=== PATIENT | male | born 1950 | race Caucasian/White ===

== ENCOUNTER → 2018-04-21 | Outpatient (CLI) | payer MEDICARE, BC ==
[~2018-04-21] MED LIST: BP MED; CALCTAB19 PO; ENOX30P SQ; FAMO20TA2 PO; HYDR-3583 PO; LISI10TA3 PO; Lactulose Liq PO; SENN1TAB PO; VITA2000 PO; VITA500012 PO; WHEEMIS3; XARE10TA PO
[2018-04-21 12:25] LABS: AUTOMATED NEUTROPHIL # 3.1 TH/MM3 (1.8-7.7); BASOPHIL # 0.1 TH/MM3 (0-0.2); EOSINOPHIL # 0.1 TH/MM3 (0-0.4); EOSINOPHIL % 1.9 % (0.0-4.0); HEMATOCRIT 41.4 % (39.0-51.0); HEMOGLOBIN 13.9 GM/DL (13.0-17.0); LYMPH % 42.1 % (9.0-44.0); LYMPHOCYTE # 2.7 TH/MM3 (1.0-4.8); MEAN CELL VOLUME 92.7 FL (80.0-100.0); MEAN CORPUSCULAR HEMOGLOBIN 31.2 PG (27.0-34.0); MEAN CORPUSCULAR HGB CONC 33.6 % (32.0-36.0); MEAN PLATELET VOLUME 8.6 FL (7.0-11.0); MONO % 7.6 % (0.0-8.0); MONOCYTE # 0.5 TH/MM3 (0-0.9); NEUT % 47.4 % (16.0-70.0); PLATELET COUNT 224 TH/MM3 (150-450); RED BLOOD COUNT 4.47 MIL/MM3 (4.50-5.90); WHITE BLOOD COUNT 6.5 TH/MM3 (4.0-11.0)
[2018-04-21 12:33] LABS: PROTHROMBIN TIME - PATIENT 10.4 SEC (9.8-11.6)
--- NOTE | 2018-04-21 12:34 | RADRPT ---
EXAM DATE: 04/21/2018 12:30 PM EDT AGE/SEX: 67 years / Male INDICATIONS: Evaluate for pneumonia, pneumothorax, or any communicable disease. Pre op knee surgery. CLINICAL DATA: This is the patient's initial encounter. Patient reports that signs and symptoms have been present for 1 day and indicates a pain score of 0/10. MEDICAL/SURGICAL HISTORY: None. None. COMPARISON: No prior exams available for comparison. FINDINGS: PA and lateral views of the chest demonstrate the lungs to be symmetrically aerated without evidence of mass, infiltrate or effusion. The cardiomediastinal contours are unremarkable. Osseous structures are intact. CONCLUSION: No active disease. Tortuous aorta. Electronically signed by: Hilario Jones MD 04/21/2018 12:33 PM EDT
[2018-04-21 12:36] LABS: BILIRUBIN, URINE NEG (NEG); BLOOD, URINE MOD (NEG); GLUCOSE,URINE NEG (NEG); KETONE, URINE NEG (NEG); MUCUS URINE FEW /lpf (OCC); NITRITE,URINE NEG (NEG); URINE COLOR YELLOW (YELLW/STRAW); URINE LEUKOCYTE ESTERASE NEG (NEG)
[2018-04-21 12:51] LABS: WESTERGREN SEDIMENTATION RATE 9 mm/hr (0-20)
[2018-04-21 13:20] LABS: ALBUMIN 4.2 GM/DL (3.4-5.0); ALT (GPT) 13 U/L (12-78); AST (GOT) 14 U/L (15-37); BICARBONATE 27.5 MEQ/L (21.0-32.0); BLOOD UREA NITROGEN 10 MG/DL (7-18); CALCIUM 8.9 MG/DL (8.5-10.1); CHLORIDE 107 MEQ/L (98-107); CREATININE 0.78 MG/DL (0.60-1.30); GLOMERULAR FILTRATION RATE 99 ML/MIN (>89); GLUCOSE,FASTING 89 MG/DL (74-99); SODIUM (NA) 141 MEQ/L (136-145)
[2018-04-21 13:22] LABS: ALKALINE PHOSPHATASE 109 U/L (45-117); TOTAL BILIRUBIN ADULT 0.6 MG/DL (0.2-1.0); TOTAL PROTEIN 7.4 GM/DL (6.4-8.2)
--- NOTE | 2018-04-21 15:26 | EKG ---
Date Performed: 04/21/2018 Time Performed: 11:50:18 PTAGE: 67 years EKG: Sinus rhythm BORDERLINE LEFT AXIS DEVIATION BORDERLINE ECG No significant change from prior electrocardiogram. PREVIOUS TRACING : 08/09/2017 05.55 DOCTOR: Arvin Fregoso Interpretating Date/Time 04/21/2018 15:25:42
== END ==
LOC: CPRE 11:26
PROVIDERS: ATTEND Orthopaedic Surgery
DX: Z01.812 Encounter for preprocedural laboratory examination (principal); Z01.810 Encounter for preprocedural cardiovascular examination; Z01.811 Encounter for preprocedural respiratory examination; M17.12 Unilateral primary osteoarthritis, left knee; M79.609 Pain in unspecified limb; M25.50 Pain in unspecified joint; R94.31 Abnormal electrocardiogram [ECG] [EKG]; Z96.60 Presence of unspecified orthopedic joint implant
CPT/HCPCS: 36415; 71046; 80053; 81001; 85025; 85610; 85652; 85730; 93005

== ENCOUNTER 2018-05-07 06:10 | Inpatient (IN) ==
[2018-05-07] MEDS ORDERED: Ketamine Inj 50 MG/5 ML Syringe IV.PUSH ONE (06:30)
[2018-05-07] MEDS ORDERED: Metoprolol Tartrate 25 MG Tablet PO SCH (06:45)
[2018-05-07] MEDS ORDERED: Chlorhexidine Gluconate 2% 1 Pack (2 Cloths) TOPICAL SCH (06:45)
[2018-05-07] MEDS ORDERED: Sodium Chlor 0.9% Inj 73.07 ML, Ropivacaine 0.5% PF Inj 24.63 ML, Ketorolac Inj 30 MG, ... P-ARTICULR SCH ×5 (07:00)
[2018-05-07] MEDS ORDERED: Sodium Chlor 0.9% Inj 500 ML IV.SIG SCH (07:00)
[2018-05-07] MEDS ORDERED: TRANEXAMIC ACID IV.SIG SCH (07:00)
[2018-05-07] MEDS ORDERED: SODIUM CHLOR 0.9% IV.SIG SCH (07:00)
[2018-05-07] MEDS ORDERED: Chlorhexidine 4% Topical 120 APPLIC/120 ML Bottle TOPICAL SCH (07:00)
[2018-05-07] MEDS ORDERED: Vancomycin Inj 1 GM/200 ML PIGGYBACK IV.SIG SCH (07:00)
[2018-05-07] MEDS: Dexamethasone Inj 20 MG/5 ML Vial IV.PUSH ONE (07:44)
[2018-05-07] MEDS ORDERED: Bupivacaine Liposomal PF 1.3% Inj 20 ML Vial ONE (07:47)
[2018-05-07] MEDS: ceFAZolin 2 GM Premix Inj 2 GM/50 ML PIGGYBACK IV.SIG SCH ×2 (08:06→20:06)
[2018-05-07] MEDS ORDERED: Bisacodyl 10 MG Supp RECTAL PRN (10:45)
[2018-05-07] MEDS ORDERED: Zolpidem Tartrate 5 MG Tablet PO PRN (10:45)
[2018-05-07] MEDS ORDERED: Tranexamic Acid Inj 1,000 MG in Sodium Chlor 0.9% Inj 100 ML IV.SIG ONE (10:45)
[2018-05-07] MEDS ORDERED: Post-op Orders (for Pharmacy) OTHER STA (10:45)
--- NOTE | 2018-05-07 11:00 | P.OP ---
Date of procedure: 05/07/18 Procedure: Left total knee arthroplasty, staged and planned, unusual procedure service Anesthesia: [facility] Surgeon: Devyn Gonzalez MD Stock Broker Supervisor: ENID Chatterjee The surgical procedure was assisted by my Advanced Registered Nurse Practitioner. My FINISHER DENTURE presence was necessary throughout this case for the manipulation and positioning of the surgical extremity. My FINISHER DENTURE was assisting me throughout the duration of this procedure. The skill set of an Advance Registered Nurse Practitioner was medically necessary to complete this procedure. During the surgical case, the surgical services asst was working at the back table and the Advance Registered Nurse Practitioner was directly assisting me. Estimated blood loss (mL): 300 Operation and Findings: IMPLANTS: DePuy Sigma revision components: Patella: size 35. Femur, posterior stabilized size 5. Tibia, rotating platform, size 5, metaphyseal sleeve 37 MBT revision, universal stem fluted, 75 x 18 Tibial insert, rotating platform, posterior stabilized size 10 mm thickness. ESTIMATED BLOOD LOSS: 300 cc TOURNIQUET TIME: 57 minutes at 250 mmHg pressure. JUSTIFICATION FOR PROCEDURE: The patient has end-stage osteoarthritis to the knee, due to posttraumatic deformity from a failed ORIF of a complex tibial plateau fracture. The patient had recently undergone removal of the hardware in preparation for moving forward with the complex knee reconstruction. The patient had significant deficiency of the lateral tibial plateau along with some nonunion laterally. This required revision components on the tibia. There is an attached conservative measures pathway form in the chart that describes the nonoperative measures that were undertaken prior to consideration of surgical management. The patient understood the risks and benefits of surgical management. See my office notes for further details. Note the extra time that was necessary to perform this surgery due to the complexity of the significant valgus deformity and the bone loss laterally. PROCEDURE: The patient was brought back to the operative theatre. Adequate anesthesia was obtained. The patient received intravenous vancomycin and Ancef. The lower extremity was prepped and draped in the usual sterile fashion.The leg was exsanguinated, the tourniquet was raised. A standard anterior incision was performed followed by medial parapatellar arthrotomy was performed. End-stage arthritis was identified. Significantly displaced depressed lateral tibial plateau fracture which was only partially healed was noted. There is still some evidence of nonunion of the very posterolateral aspect. Osteotomy of the patella was performed. We drilled holes for the patella. We trialed the patella component. We placed an intramedullary guide into the distal femur. We ultimately resected 13 mm off of the distal femur in 5 degrees of valgus. The remnants of the ACL and PCL were resected. Osteotomy of the proximal tibia was performed, resecting 10 mm off of the medial side. This was done with 3 degrees of posterior slope using an intramedullary guide. We did need to go back and perform further resection of the distal femur and some further resection of the proximal tibia in order to obtain good extension. At this time we took an extra 15 minutes working on ligament balance of the lateral aspect of the knee. The patient required recession of the iliotibial band and also of the popliteus tendon and also of the lateral collateral ligament. This was done in stages to make sure we did not over release the lateral side. We watch the foot and saw no contractures of the ankle or toes during the releases. The releases were performed with a Bovie. We went back to work on the tibia again. Initially we thought we were going to place a augment on the lateral side. We removed a lot of scar tissue laterally which gave us better visualization of the remaining portion of the bone. We used a assistant merchandiser followed by power reamers into the proximal tibia for the stem. We then proximally punched the tibia for the metaphyseal sleeve. We went up 2 sizes. We reassessed the lateral side. We found that we had adequate bone in the anterior and posterior aspect of the lateral plateau therefore we decided not to do the wedge but rather Obey the space with cement. We resected all remnants of the scar to get down to bone for the cementing. This entire process took an extra 25 minutes. Note that while we were doing this we did release the tourniquet and achieved hemostasis. The femur was sized, and four chamfer cuts were completed in 3 of external rotation. We then cut the central box in the distal femur to replace the PCL. We resected the remnants of the menisci and removed osteophytes off of the femur and tibia. We then trialed the knee. We spent an extra 7 minutes on the back table assembling the tibial components and making sure that they fit well into the appropriate region of the proximal tibia. We modified our standard cementing technique in order to fill the void laterally. We made sure not to get cement into the metaphyseal region where the sleeve was contacting an excellent base of bone. Excess cement was removed. We trialed the knee again and the final polyethylene thickness was chosen to provide extension to 0 degrees, and flexion of 140 degrees to gravity. The ligaments were appropriately balanced. Lateral release was necessary to obtain appropriate patellofemoral tracking. An intra-articular injection of a ropivacaine cocktail was injected. The posterior knee was inspected for excess cement, which was removed. The final polyethylene was put into position after thorough irrigation. We then closed deep fascia with a #2 Stratafix followed by skin with 2-0 Vicryl followed by Dermabond dressing. Postop plan is to weight-bear as tolerated. DVT prophylaxis will be performed with SCDs, SAPPHIRE diaz, early mobilization, and Lovenox followed by aspirin.
[2018-05-07] MEDS ORDERED: fentaNYL Citrate Inj 100 MCG/2 ML Ampul ONE (11:20)
[2018-05-07] MEDS: Sod Chloride 0.9% Inj 1,000 ML IV.CONT SCH (11:33)
[2018-05-07] MEDS ORDERED: *morphine SULFATE 4 MG/ML PERIprocedure ONLY ONE ×4 (11:34→12:15)
[2018-05-07] MEDS ORDERED: Glycopyrrolate Inj 1 MG/5 ML Syringe IV.PUSH ONE (11:46)
[2018-05-07] MEDS ORDERED: Lidocaine PF 1% Inj 5 ML Syringe INFILTRATN ONE (11:46)
[2018-05-07] MEDS ORDERED: Labetalol HCl Inj 100 MG/20 ML Vial IV.CONT ONE (11:46)
[2018-05-07] MEDS ORDERED: Neostigmine Inj 5 MG/5 ML Syringe IV.PUSH ONE (11:46)
[2018-05-07] MEDS ORDERED: Esmolol Bolus Inj 100 MG/10 ML Vial IV.PUSH ONE (11:46)
[2018-05-07] MEDS ORDERED: Morphine Inj 4 MG/ML Vial IV.PUSH PRN (12:00)
[2018-05-07] MEDS ORDERED: oxyCODONE/Acetaminophen 10/325 Tablet PO PRN (12:00)
--- NOTE | 2018-05-07 12:10 | XR ---
EXAM DATE: 05/07/2018 11:45 AM EDT AGE/SEX: 67 years / Male INDICATIONS: Post-op left knee. CLINICAL DATA: This is the patient's initial encounter. Patient reports that signs and symptoms have been present for 1 day and indicates a pain score of 8/10. MEDICAL/SURGICAL HISTORY: None. None. COMPARISON: No prior exams available for comparison. FINDINGS: Postoperative left total knee replacement. Normal alignment. Subacute fracture proximal fibula. Air p resent in the soft tissues. CONCLUSION: Postoperative left total knee replacement. No acute findings. Electronically signed by: Hilario Jones MD 05/07/2018 12:09 PM EDT
[2018-05-07] MEDS: Senna/Docusate Sodium 8.6/50 MG Tablet PO SCH (22:20)
[2018-05-07] MEDS: Multivitamin/Minerals Therapeutic Tablet PO SCH (22:20)
[2018-05-08] MEDS: oxyCODONE/Acetaminophen 10/325 Tablet PO PRN ×5 (02:33→20:50)
[2018-05-08 05:12] LABS: Hematocrit 29.8 % (39.0-51.0); Hemoglobin 10.1 gm/dL (13.0-17.0)
[2018-05-08] MEDS: Sod Chloride 0.9% Inj 1,000 ML IV.CONT SCH (07:47)
[2018-05-08] MEDS: Senna/Docusate Sodium 8.6/50 MG Tablet PO SCH ×3 (07:54→20:50)
[2018-05-08] MEDS: Multivitamin/Minerals Therapeutic Tablet PO SCH ×3 (07:54→20:50)
[2018-05-08] MEDS: Lisinopril 10 MG Tablet PO SCH ×2 (07:54→08:00)
[2018-05-08] MEDS ORDERED: Dexamethasone Inj 20 MG/5 ML Vial IV.PUSH ONE (08:00)
[2018-05-08] MEDS: Enoxaparin Inj 40 MG/0.4 ML Syringe SQ SCH (11:00)
[2018-05-08] MEDS: Dexamethasone Inj 20 MG/5 ML Vial IV.PUSH ONE (19:11)
--- NOTE | 2018-05-08 19:30 | P.DCO ---
- Physical Therapy Physical Therapy: Gait training, Transfer training, bed to chair Knee: Total knee Left Lower Extremity Weight Bearing: Weight bearing as tolerated Left Lower Extremity Range of Motion: Active ROM - Nursing RN: 3 days/week x 2 weeks Nursing: Randy mejia Dressing changes: Do not change dressing Additional instructions: First dressing change in office - Certification Need for Home Health services: I have seen patient Mando Crain on 05/08/18. My clinical findings support the need for the requested home health care services because: Need for Home Health Services: Deconditioned with increased weakness, High risk of falls Homebound Certification: I certify that my clinical findings support that this patient is homebound because: Homebound Certification: Post-op weakness, Unsteady gait/balance
--- NOTE | 2018-05-08 19:37 | P.PNOP ---
Subjective Interval history: The patient is resting comfortably in bed with mild to moderate pain to the left knee. Patient not sure whether he wants to go home with home health or to rehab. Patient states he lives alone. Physical Exam Vital signs: Vital Signs 05/07/18 20:00 05/08/18 00:00 05/08/18 04:00 Temperature 98.0 F 97.8 F 99.6 F Pulse Rate 66 75 82 Respiratory Rate 17 18 18 Blood Pressure 110/65 102/62 108/55 L Pulse Oximetry 98 97 96 05/08/18 08:00 05/08/18 12:37 05/08/18 15:25 Temperature 97.7 F 97.7 F 97.6 F Pulse Rate 81 85 80 Respiratory Rate 18 18 Blood Pressure 113/56 L 112/64 111/63 Pulse Oximetry 97 97 97 Intake & Output 05/08/18 05/08/18 05/09/18 06:59 18:59 06:59 Intake Total 560 / 560 215.2 / 215.2 Output Total 725 / 725 545 / 545 Balance -165 / -165 -545 / -545 215.2 / 215.2 Intake: IV 200 / 200 215.2 / 215.2 Ancef Inj 1,000 MG In NS Inj 200 / 200 100 ML @ 200 mls/hr IV.SIG Q6H DIGNA Rx#:[id number] Oral 360 / 360 Output: Urine 250 / 250 545 / 545 Stool 0 / 0 Urine Amount (Catheter) 475 / 475 Straight 475 / 475 Other: # Voids 2 Date of Last Bowel Movement 05/06/18 05/06/18 Narrative: Dressing is C/D/I. EHL/TA/G intact. 2+ pedal pulse. Calf is soft and nontender. Moderate swelling and ecchymosis. Compartments are soft. + SILT distally. - Constitutional no acute distress - Routine HEENT Exam Head: Present: normocephalic, atraumatic Eye: Present: PERRL ENT: Present: mucous membranes moist - Routine Neck Exam Present: supple - Routine Abdominal Exam Present: soft - Routine Skin Exam Present: dry, warm - Routine Neurological Exam Present: alert, oriented X3, CN II-XII intact - Detailed Neurological Exam: Coma Scale Eye Opening: Spontaneous Verbal Response: Oriented Motor Response: Obey commands [place] Coma Scale Total: 15 - Routine Psychiatric Exam Present: normal affect - Urinary Catheter Management Straight Cath placed during this visit: yes, but has since been removed by the nurse Reason for continuing: Not indwelling catheter Insertion date: 05/07/18 Insertion time: 23:30 Removal date: 05/08/18 Removal time: 00:15 Results - Labs CBC & Chem 7: 05/08/18 04:53 Laboratory Results - last 24 hr 05/08/18 04:53 Hgb 10.1 L Hct 29.8 L - Procedures Left TKA Assessment and Plan - Ortho Post Op Day # 1 (Left TKA) - Problem List (1) Primary localized osteoarthritis of left knee Code(s): M17.12 - Unilateral primary osteoarthritis, left knee Status: Acute (2) Status post total knee replacement, left Code(s): Z96.652 - Presence of left artificial knee joint Status: Acute - Assessment and Plan 1. WBAT LLE 2. Lovenox followed by ASA for DVT prophylaxis 3. Ice to the LLE PRN 4. No dressing changes. First dressing change in the office. 5. Anticipatory discharge to SNF vs. home with home health on Saturday or Saturday. 6. F/U in the office with Dr. Gonzalez or ENID Burrell as previously scheduled.
[2018-05-09] MEDS: oxyCODONE/Acetaminophen 10/325 Tablet PO PRN ×5 (03:04→20:50)
[2018-05-09] MEDS: Sod Chloride 0.9% Inj 1,000 ML IV.CONT SCH (06:27)
[2018-05-09 07:12] LABS: Hematocrit 25.9 % (39.0-51.0); Hemoglobin 8.8 gm/dL (13.0-17.0)
[2018-05-09] MEDS: Enoxaparin Inj 40 MG/0.4 ML Syringe SQ SCH ×2 (07:50→09:20)
[2018-05-09] MEDS: Lisinopril 5 MG Tablet PO SCH ×2 (07:58→08:02)
[2018-05-09] MEDS: Multivitamin/Minerals Therapeutic Tablet PO SCH ×2 (08:02→20:51)
[2018-05-09] MEDS: Senna/Docusate Sodium 8.6/50 MG Tablet PO SCH ×2 (08:02→20:50)
--- NOTE | 2018-05-09 14:10 | P.PNOP ---
Subjective Interval history: Patient's knee is comfortable. He just finished the joint class. Physical Exam Vital signs: Vital Signs 05/08/18 15:25 05/08/18 20:00 05/09/18 00:00 Temperature 97.6 F 97.2 F L 97.9 F Pulse Rate 80 77 89 Respiratory Rate 18 20 20 Blood Pressure 111/63 113/58 L 107/60 Pulse Oximetry 97 97 97 05/09/18 08:00 05/09/18 11:18 Temperature 99.0 F 97.8 F Pulse Rate 77 78 Respiratory Rate 16 17 Blood Pressure 117/59 L 99/59 L Pulse Oximetry 97 98 Intake & Output 05/08/18 05/09/18 05/09/18 18:59 06:59 18:59 Intake Total 1415.2 / 1415.2 2109.4 / 2109.4 Output Total 545 / 545 950 / 950 Balance -545 / -545 465.2 / 465.2 2109.4 / 2109.4 Intake: IV 215.2 / 215.2 2109.4 / 2109.4 NS Inj 1,000 ML @ 50 mls/hr IV. 857 / 857 CONT .Q20H DIGNA Rx#:[id number] LR 1000 mL Inj 1,000 ML @ 30 1000 / 1000 mls/hr IV.SIG .Q24H DIGNA Rx#: [id number] Vancomycin Inj 1 gm In 200 ml @ 200 / 200 200 mls/hr IV.SIG MILL ORDER SCHEDULER DIGNA Rx#:[id number] Ancef 2 GM Premix Inj 2 gm In 50 / 50 50 ml @ 100 mls/hr IV.SIG MILL ORDER SCHEDULER DIGNA Rx#:[id number] Oral 1200 / 1200 Output: Urine 545 / 545 950 / 950 Other: # Voids 2 Date of Last Bowel Movement 05/06/18 05/09/18 # Bowel Movements 1 Narrative: Dressing is C/D/I. There is moderate swelling of the knee. EHL/TA/G intact. Calf is soft and nontender - Urinary Catheter Management Straight Cath placed during this visit: yes, but has since been removed by the nurse Reason for continuing: Not indwelling catheter Insertion date: 05/07/18 Insertion time: 23:30 Removal date: 05/08/18 Removal time: 00:15 Results - Labs CBC & Chem 7: 05/09/18 06:30 Laboratory Results - last 24 hr 05/09/18 06:30 Hgb 8.8 L Hct 25.9 L - Procedures Left TKA Assessment and Plan - Problem List (1) Primary localized osteoarthritis of left knee Code(s): M17.12 - Unilateral primary osteoarthritis, left knee Status: Acute (2) Status post total knee replacement, left Code(s): Z96.652 - Presence of left artificial knee joint Status: Acute - Assessment and Plan POD #2 s/p L TKA, with revision components 1. WBAT LLE 2. Lovenox followed by ASA for DVT prophylaxis 3. Ice to the LLE PRN 4. No dressing changes. First dressing change in the office. 5. Anticipatory discharge to SNF on Saturday. Prescriptions on the chart. 6. F/U in the office with Dr. Gonzalez or ENID Burrell as previously scheduled.
[2018-05-10] MEDS: oxyCODONE/Acetaminophen 10/325 Tablet PO PRN ×3 (01:47→10:31)
[2018-05-10] MEDS: Sod Chloride 0.9% Inj 1,000 ML IV.CONT SCH (01:48)
[2018-05-10 05:34] VITALS: O2SAT 97
--- NOTE | 2018-05-10 08:04 | P.PNOP ---
Subjective Interval history: doing well. thigh sore. Physical Exam Vital signs: Vital Signs 05/09/18 11:18 05/09/18 16:00 05/09/18 20:00 Temperature 97.8 F 97.4 F L 97.8 F Pulse Rate 78 68 84 Respiratory Rate 17 16 18 Blood Pressure 99/59 L 123/71 106/55 L Pulse Oximetry 98 99 99 05/10/18 00:00 05/10/18 04:00 Temperature 97.8 F 98.6 F Pulse Rate 81 74 Respiratory Rate 18 18 Blood Pressure 126/68 98/57 L Pulse Oximetry 98 97 Intake & Output 05/09/18 05/10/18 05/10/18 18:59 06:59 18:59 Intake Total 2109.4 / 2109.4 600 / 600 Balance 2109.4 / 2109.4 600 / 600 Intake: IV 2109.4 / 2109.4 NS Inj 1,000 ML @ 50 mls/hr IV. 857 / 857 CONT .Q20H DIGNA Rx#:[id number] LR 1000 mL Inj 1,000 ML @ 30 1000 / 1000 mls/hr IV.SIG .Q24H DIGNA Rx#: [id number] Vancomycin Inj 1 gm In 200 ml @ 200 / 200 200 mls/hr IV.SIG BILL CUTTER DIGNA Rx#:[id number] Ancef 2 GM Premix Inj 2 gm In 50 / 50 50 ml @ 100 mls/hr IV.SIG BILL CUTTER DIGNA Rx#:[id number] Oral 600 / 600 Other: # Voids 4 Date of Last Bowel Movement 05/09/18 05/09/18 # Bowel Movements 1 Narrative: in bed, nad dressing c/d/i kendall hawkins nvi - Urinary Catheter Management Straight Cath placed during this visit: yes, but has since been removed by the nurse Reason for continuing: Not indwelling catheter Insertion date: 05/07/18 Insertion time: 23:30 Removal date: 05/08/18 Removal time: 00:15 Results - Labs CBC & Chem 7: 05/09/18 06:30 - Procedures Left TKA Assessment and Plan - Ortho Post Op Day # 3 - Problem List (1) Primary localized osteoarthritis of left knee Code(s): M17.12 - Unilateral primary osteoarthritis, left knee Status: Acute (2) Status post total knee replacement, left Code(s): Z96.652 - Presence of left artificial knee joint Status: Acute - Assessment and Plan POD #3 s/p L TKA, with revision components 1. WBAT LLE 2. Lovenox followed by ASA for DVT prophylaxis 3. Ice to the LLE PRN 4. No dressing changes. First dressing change in the office. 5. Anticipatory discharge to SNF on Saturday. Prescriptions on the chart.- cleared for d/c when arrangements in place 6. F/U in the office with Dr. Gonzalez or ENID Burrell as previously scheduled.
[2018-05-10 08:42] VITALS: BP 97/58; PULSE 75; RESP 17; TEMP 98.9
[2018-05-10] MEDS: Senna/Docusate Sodium 8.6/50 MG Tablet PO SCH (10:19)
[2018-05-10] MEDS: Lisinopril 5 MG Tablet PO SCH (10:20)
[2018-05-10] MEDS: Multivitamin/Minerals Therapeutic Tablet PO SCH (10:21)
[2018-05-10] MEDS: Enoxaparin Inj 40 MG/0.4 ML Syringe SQ SCH (10:31)
--- NOTE | 2018-05-12 17:12 | P.DS ---
Date of admission: 05/07/18 06:10 Primary care physician: Mirza Rodriguez DO Attending physician on discharge: Devyn Gonzalez Anticipated date of discharge: 05/10/18 Brief History from admission: The patient was admitted to the hospital with severe osteoarthritis of the LEFT knee and prior failure of a tibial plateau fracture with open reduction internal fixation. DS: Diagnosis - Discharge Diagnosis (1) Primary localized osteoarthritis of left knee Status: Acute (2) Status post total knee replacement, left Status: Acute DS: Medications - Discharge Medications Prescriptions: aspirin [Radha Aspirin] 325 mg PO DAILY 30 Days #30 tab enoxaparin [Lovenox] 40 mg SUB-Q DAILY 10 Days #10 ml oxycodone-acetaminophen [Percocet] 1 - 2 tab PO Q4-6H PRN #50 tab PRN Reason: Acute Pain DS: Summary Hospital Course: The patient was admitted to the hospital with severe osteoarthritis of the LEFT knee and prior failure of a tibial plateau fracture with open reduction internal fixation. The patient had a LEFT total knee arthroplasty. The patient 's surgery went well without complication. The patient is weightbearing as tolerated on the LEFT lower extremity. The patient was placed on Lovenox followed by aspirin for DVT prophylaxis. The patient was discharged to a [facility] facility for [facility]. The patient will follow-up in the office as previously scheduled with Dr. Gonzalez or ENID Burrell. - Time Spent with Patient Total time spent providing and/or coordinating discharge services: - Quality: VTE Deep Vein Thrombosis/Pulmonary Embolism Present on Admission: No Results Procedures completed during hospitalization: Left TKA - Impressions ITS Impressions Knee X-Ray 05/07/18 00:00 CONCLUSION: Postoperative left total knee replacement. No acute findings. Discharge Plan - Discharge Disposition Patient Disposition: /Home Health Service - Discharge Condition Condition: Stable - Discharge Order Discharge Orders: Discharge Order (Routine); Ordered 05/07/18 Ordered By: Jean Tellez - Discharge Details Anticipated Discharge Date: 05/08/18 Discharge Comment: F/U in the office as previously scheduled with Dr. Gonzalez or ENID Burrell - Physicians Team Primary Care Provider: Mirza Rodriguez Attending Provider: Devyn Gonzalez - Rxs /Orders / Referrals /Forms Prescriptions: New aspirin [Radha Aspirin] 325 mg Tablet 325 mg PO DAILY 30 Days Qty: 30 RF: 0 enoxaparin [Lovenox] 40 mg/0.4 mL Syringe 40 mg SUB-Q DAILY 10 Days Qty: 10 RF: 0 oxycodone-acetaminophen [Percocet] 5-325 mg Tablet 1 - 2 tab PO Q4-6H PRN (Reason: Acute Pain) Qty: 50 RF: 0 Continue cholecalciferol (vitamin D3) [Vitamin D3] 2,000 unit Tablet 2,000 unit PO DAILY lisinopril 10 mg Tablet 10 mg PO DAILY Discontinued glucosamine sulfate [Glucosamine] 500 mg Tablet 500 mg PO DAILY hydrocodone-acetaminophen 7.5-325 mg Tablet 1 tab PO Q6HR PRN (Reason: Pain) Ambulatory Orders / Order Sets / DME: Adjustable Commode 3-in-1 (1 each) (Routine) Location: Determined by Patient Ordered By: Jean Tellez CPM - Continuous Passive Motion Machine (1 each) (Routine) Location: Determined by Patient Ordered By: Jean Tellez Walker With Front Wheels (1 each) (Routine) Location: Determined by Patient Ordered By: Jean Tellez Referrals: Mirza Rodriguez, [Primary Care Provider] - See Instructions - Post Discharge Care Plan Care Plan Goals: Discharge Care Plan Goals for Total Knee Replacement You have undergone knee replacement surgery. Your doctor replaced your painful joint with an artificial joint to relieve pain and restore movement. Here are some goals to help you heal well. Directions to Meet your Goals: 1. Activity & Exercises: * Take pain medicine as directed by your doctor. * Sit in chairs with arms. The arms make it easier for you to stand up or sit down. * Dont sit for more than 30 to 45 minutes at one time. * Nap if you are tired, but dont stay in bed all day. * Sleep with a pillow under your ankle, not your knee. Be sure to change the position of your leg during the night. * Wear the support stockings you were given in the hospital as directed by your surgeon. 2. Prevent Falls/Injury: The coy to successful recovery is movement with walking and exercising your knee as directed by your doctor. * Arrange your household to keep the items you need handy. Keep everything else out of the way. * Remove items that may cause you to fall, such as throw rugs and electrical cords. * Use nonslip bath mats, grab bars, an elevated toilet seat, and a shower chair in your bathroom * Sit on a shower stool or chair when you shower to keep from falling. * Until your balance, flexibility, and strength improve, use a cane, crutches, a walker, handrails, or someone to help you. * Keep your hands free by using a backpack, omar pack, apron, or pockets to carry things * Walk up and down stairs with support. Try one step at a time. Use the railing if possible. * Dont drive until your doctor says its OK. * Dont drive while you are taking opioid pain medicine. 3. Precautions: * Prevent infection. Any infection will need to be treated immediately. Call your doctor right away if you think you might have an infection. * Tell your dentist that you have an artificial joint and take antibiotics as prescribed before any dental work. * Tell all your healthcare providers about your artificial joint before any medical procedure. * Maintain a healthy weight. Get help to lose any extra pounds. Added body weight puts stress on the knee. * Your medications may include blood-thinning medicine to prevent blood clots or antibiotics to prevent infection-prevent any falls or cuts 4. Incision Care: * Prevent infection by washing your hands often. If an infection occurs, it will need to be treated right away. * Call your doctor right away if you think you may have an infection. Symptoms include a fever or an incision that leaks white, green, or yellow fluid. * Don't soak your incision in water until your doctor says its OK. This means no hot tubs, bathtubs, or swimming pools. * Follow your doctor's instructions for changing the dressing. * Dont rub the incision, or apply creams or lotions to it. * If you notice any redness or drainage around the bandage site, contact your surgeon's office immediately. 5. Follow-Up: Do Not miss your follow-up appointment. Keep up with all your appointments and yearly check ups When to call your doctor: Call your doctor right away if you have: Fever of 100.4F (38C) or higher, or as directed by your doctor Shaking chills Stiffness, or inability to move the knee Increased swelling in your leg Increased redness, tenderness, or swelling in or around the knee incision Drainage from the knee incision Increased knee pain Call 911: Call 911 right away if you have: Chest pain Shortness of breath Any pain or tenderness in your calf
== END 2018-05-10 11:47 ==
LOC: HSDI 06:10 → N06 13:13
PROVIDERS: ADMIT Orthopaedic Surgery; ATTEND Orthopaedic Surgery
DX: S82.142K Displaced bicondylar fracture of left tibia, subsequent encounter for closed fracture with nonunion; M54.2 Cervicalgia; Y83.8 Other surgical procedures as the cause of abnormal reaction of the patient, or of later complication, without mention of misadventure at the time of the procedure; Z87.891 Personal history of nicotine dependence; I10 Essential (primary) hypertension; M17.32 Unilateral post-traumatic osteoarthritis, left knee; Y79.3 Surgical instruments, materials and orthopedic devices (including sutures) associated with adverse incidents; M54.9 Dorsalgia, unspecified; M21.062 Valgus deformity, not elsewhere classified, left knee; Z85.46 Personal history of malignant neoplasm of prostate